=== PATIENT | female | born 1955 | race Caucasian/White ===

== ENCOUNTER 2017-10-18 15:55 | Emergency (ER) | payer MEDICARE, SELFPAY ==
[2017-10-18 15:56] VITALS: BP 134/100; PULSE 92; RESP 16; TEMP 37.1; O2SAT 95; BMI 36.9
--- NOTE | 2017-10-18 16:12 | EKG12_ITS ---
Test Reason : ABD PAIN Blood Pressure : / mmHG Vent. Rate : 081 BPM Atrial Rate : 081 BPM P-R Int : 148 ms QRS Dur : 094 ms QT Int : 374 ms P-R-T Axes : 037 035 025 degrees QTc Int : 434 ms Normal sinus rhythm Normal ECG Confirmed by DELPHINE NORWOOD, HOLLY ([id number]), editorial manager ANDERSON HALEY ([id number]) on 10/21/2017 1:56:25 PM Referred By: CORETTA Confirmed By:HOLLY AKERS MD
--- NOTE | 2017-10-18 16:12 | CT_ITS ---
STUDY: CT ABDOMEN AND PELVIS WITH CONTRAST REASON FOR EXAM: Female, 62 years old. Burning sensation in stomach when eating RADIATION DOSAGE (If Supplied By Facility): CTDIvol = ( 17.68 ) mGy, DLP = ( 1170.11 ) mGycm TECHNIQUE: Transaxial images were obtained from the dome of the diaphragm to the symphysis pubis without oral contrast. 100 ml of Isovue 300 contrast was administered. Sagittal and coronal images were reconstructed. Individualized dose optimization techniques were used for this CT. COMPARISON: None. FINDINGS: The visualized lung bases are unremarkable. The visualized portions of the heart are within normal limits. Normal liver. There are surgical clips in the gallbladder fossa consistent with a prior cholecystectomy. Normal spleen. Normal pancreas. Normal bilateral adrenal glands. Normal right kidney. Normal left kidney. Postoperative change and wall thickening of the proximal stomach. Normal small intestine. There are multiple colonic diverticula consistent with diverticulosis. There is non-visualization of the appendix. There is diffuse atherosclerotic calcification of the abdominal aorta, without a demonstrated aneurysm. Normal inferior vena cava. Normal retroperitoneum. Normal urinary bladder. There is absence of the uterus consistent with a prior hysterectomy. There is no free fluid in the abdomen or pelvis. Normal abdominal wall. There is degenerative change of the spine with fusion at L4-5. CT/Abdomen/Pelvis W IV Cont ONLY IMPRESSION: Postoperative change and wall thickening at the proximal stomach. Colonic diverticulosis. No obstruction or abscess. Electronically Signed: Ariel Pollack MD at 17:31 EDT , Service support ,
--- NOTE | 2017-10-18 16:15 | ED.DCSUM_ITS ---
- ER Visit Summary Date of Service: 10/18/17 Chief Complaint: Abdominal pain History of Present Illness: The patient is a 62 F upper abdominal pain for a few days. She had the same symptoms months ago but never found a cause. The pain is mainly in her upper dominant. It radiates to her left shoulder. Worse with food and with medication. She tried omeprazole today, but had she has a history of appendectomy, cholecystectomy, and Stanley fundoplication. The fundoplication was done in [place] in 2006. Physical Examination: Vital signs unremarkable. Afebrile. Appears uncomfortable but not toxic or in distress. Abdomen soft and nontender. Heart is regular. Lungs are clear. Back is nontender and unremarkable. Test Results: EKG, lab work, CT abdomen pending. Emergency Department Course and Treatment: She treated with fluids and Zofran while awaiting results. Lab work unremarkable. Lipase and troponin normal. EKG showed sinus rhythm at a rate of 81. No sign of ischemia or infarction. CT showed postoperative changes. Thickened proximal stomach consistent with fundoplication. Diverticulosis. Patient stable and appropriate for outpatient follow up. Will refer to GI. Return if worse or for new or worsening issues. Will prescribe omeprazole. Treatment Plan: As above Disposition: Discharge Impression: 1. Epigastric abdominal pain This note was generated with [employer] dictation software. It may contain incorrect words, spelling, and punctuation that were not noted in review of the chart prior to signing ED Disposition - Plan for ED Patient: Chief Complaint: Abd Pain Referrals: Care Physician,No Primary [Primary Care Provider] -
[2017-10-18] MEDS: 0.9% Normal Saline 1,000 ML 1000 ML IV (16:34)
[2017-10-18] MEDS: Ondansetron 4 MG/2 ML Vial IV (16:34)
[2017-10-18 16:38] LABS: Absolute Lymphocyte Count 1.98 X10^3/ul (0.83-4.51); Absolute Neutrophil Count 3.9 X10^3/uL (2.0-7.7); Basophil# 0.03 X10^3/uL; Basophil% 0.4 % (0-1); Eosinophil# 0.12 X10^3/uL; Eosinophils% 1.7 % (0-5); Hematocrit 43.9 % (37-47); Hemoglobin 14.7 g/dl (12.0-15.0); Lymphocyte # 1.98 X10^3/ul (4.0); Lymphocyte % 28.8 % (19-41); Mean Corp Hgb Conc 33.5 g/gl (32-36); Mean Corpuscular Hgb 31.5 pg (27.0-32.0); Mean Platelet Vol. 10.5 fl (6.2-12.0); Monocyte# 0.87 X10^3/uL; Monocyte% 12.6 % (0-10); Neutrophil # 3.87 X10^3/uL (2.7-7.7); Neutrophil % 56.4 % (47-70); Platelet Count 182 K/mm3 (150-450); RBC Distribution Width CV 13.4 % (11.6-14.6); RBC Distribution Width SD 44.6 fl (35.1-43.9); Red Blood Count 4.67 M/mm3 (4.2-5.4); White Blood Count 6.9 K/mm3 (4.4-11.0)
[2017-10-18 16:58] LABS: POSITIVE COUNT NO; POSITIVE DIFFERENTIAL NO; POSITIVE MORPHOLOGY NO
[2017-10-18 17:08] LABS: ALB/GLOB Ratio 1.1 RATIO (0.9-2.4); AST(SGOT) 17 U/L (15-37); Alanine Aminotransfer ALT/SGPT 13 U/L (13-56); Albumin, Serum 3.5 g/dL (3.2-5.0); Alkaline Phosphatase 100 U/L (45-117); Anion Gap 6 (5-15); BUN 21 mg/dL (7-18); BUN/Creat Ratio 21.5 RATIO (10-20); Calcium,Total 8.6 mg/dL (8.5-10.1); Chloride 107 mmol/L (98-107); Creatinine, Serum 0.98 mg/dL (0.55-1.02); EST Glomerular Filtration Rate 62 mL/min (>60); Est Glom Filt Rate - Afr Amer 75 mL/min (>60); Estimated Creatinine Clearance 48.28 ml/min; Globulin 3.1 g/dL (2.2-4.2); Glucose 93 mg/dL (74-106); Lipase 106 U/L (73-393); Protein, Total 6.6 g/dL (6.4-8.2); Sodium Level 142 mmol/L (136-145)
--- NOTE | 2017-10-18 18:34 | ED.DEP ---
ED Disposition - Plan for ED Patient: Chief Complaint: Abd Pain Instructions: ED Abdominal Pain Unkn Cause Prescriptions: Omeprazole 20 mg PO BID #60 capsule.dr Referrals: Baldemar Barnes MD [STAFF PHYSICIAN] -
[2017-10-18 18:43] VITALS: BP 124/77; PULSE 68; RESP 15; O2SAT 97
== END 2017-10-18 18:44 | disposition home or self-care (01) ==
LOC: ED 16:32
PROVIDERS: Emergency Provider Emergency Medicine
DX: R10.13 Epigastric pain (principal); M54.9 Dorsalgia, unspecified; K57.30 Diverticulosis of large intestine without perforation or abscess without bleeding; K31.89 Other diseases of stomach and duodenum; Z90.89 Acquired absence of other organs; Z90.49 Acquired absence of other specified parts of digestive tract; Z98.890 Other specified postprocedural states; Z79.899 Other long term (current) drug therapy; Z72.0 Tobacco use
CPT/HCPCS: 74177; 80053; 83690; 84484; 85025; 93005; 96361; 96374; 99283; J7030; Q9967; J2405